=== PATIENT | female | born 1990 | race Caucasian/White ===

== ENCOUNTER 2016-07-13 12:28 | Outpatient (CLI) | payer OTHER | END 2016-07-13 23:00 | LOC: LAB SRH 12:28 | DX: Z34.03 Encounter for supervision of normal first pregnancy, third trimester (principal) | CPT/HCPCS: 90004; 90039; 90074; 90078; 90261; 90364; 90599; 90600; 90605; 90606; 90710; 90851; 91227; 91228; 92863; 93140; 98480; 99777 ==

== ENCOUNTER 2016-07-19 14:06 | Outpatient (CLI) | payer OTHER ==
--- NOTE | 2016-07-19 17:59 | DIAGNOSTIC IMAGING REPORT ---
PROCEDURE: US OB DETAILED ANATOMIC INDICATION: Check dates and anatomy. Late care. TECHNIQUE: Li scale, color, and spectral Doppler images of the second trimester gravid uterus were obtained. COMPARISON: None. FINDINGS: There is a viable intrauterine in cephalic position. Placenta is anterior and there is no evidence of previa. Amniotic fluid is increased at 28.5 cm (greater than 97.5 percentile). Normal cord Doppler ratios (2.2) and cervix length (3.4 cm). anatomic survey was performed. There is increased echogenicity and enlargement of bilateral renal kidneys (right 5.4 cm, left 5.4 cm). There is no evidence of hydronephrosis. Urinary bladder is present. The cisterna magna and nuchal region are somewhat difficult to visualize due to position. The rest of the anatomic survey is within normal limits including brain and ventricles, facial structures and orbits (to the extent visualized), spine, chest diaphragm, four-chamber heart, cardiac outflow tracts (to the extent visualized), abdomen, stomach, three-vessel cord insertion, pelvis and urinary bladder. Upper and lower extremities are present. BPD 7.7 cm (31.0 weeks), HC 28.3 cm (31.0 weeks), HC 26.8 cm 90 31.0 weeks), FL 5.5 cm (29.0 weeks). IMPRESSION: 1. Viable intrauterine in cephalic position with composite age of 30.5 weeks menstrual age (plus or minus 2.5 weeks). TOREY is 09/23/2016. 2. While composite age is 30.5 weeks, there is 2-week delay in femur length (29.0 weeks) when compared to the other measurements (head, body 31.0 weeks). 3. Moderate increased echogenicity and enlargement of the renal kidneys is suspicious for polycystic kidney disease. However, there is polyhydramnios ( MICHELLE 28.5 cm) which is considered atypical for polycystic disease. 4. cisterna magna and nuchal region are difficult to evaluate due to position. 5. Otherwise normal anatomic survey. 6. Findings discussed with the patient and called to Dr. Carpio.
== END 2016-07-19 23:00 ==
LOC: US SRH 14:06
DX: Z34.93 Encounter for supervision of normal pregnancy, unspecified, third trimester (principal); Z3A.30 30 weeks gestation of pregnancy

== ENCOUNTER 2016-08-11 17:35 | Outpatient (CLI) | payer OTHER | END 2016-08-11 19:57 | disposition home or self-care (01) | LOC: NST SRH 17:35 → OB SRH 18:07 → NST SRH 19:57 | PROC: 4A0HXCZ Measurement of Products of Conception, Cardiac Rate, External Approach (ICD-10-PCS; principal; 2016-08-11) | DX: O40.3XX0 Polyhydramnios, third trimester, not applicable or unspecified (principal); O36.8930 Maternal care for other specified fetal problems, third trimester, not applicable or unspecified; Z3A.33 33 weeks gestation of pregnancy ==

== ENCOUNTER 2016-08-21 22:12 | Outpatient (CLI) | payer OTHER | END 2016-08-22 01:40 | disposition home or self-care (01) | LOC: OBC SRH 22:12 → OB SRH 22:16 → OBC SRH 08-22 01:40 | PROC: 4A0HXCZ Measurement of Products of Conception, Cardiac Rate, External Approach (ICD-10-PCS; principal; 2016-08-22) | DX: O23.593 Infection of other part of genital tract in pregnancy, third trimester (principal); N76.0 Acute vaginitis; B96.89 Other specified bacterial agents as the cause of diseases classified elsewhere; Z3A.34 34 weeks gestation of pregnancy ==